=== PATIENT | male | born 1985 | race Caucasian/White ===

== ENCOUNTER 2019-10-13 14:28 | Observation (INO) | payer BC ==
--- NOTE | 2019-10-13 16:30 | PDOC.FPRHP ---
- History of Present Illness Chief Complaint: iretractable back pain History of Present Illness: Patrice Frederick is a direct admit from Dr. Nieves. He is a 34 yo M with a history of chronic back pain and herniated discs since a football injury in high school. Since November the pain has worsened. He describes the pain as 10/10 starting in his right buttocks and shooting down the lateral side of his legs into his feet. He also complains of a pelvic shift with an elevated right hip that causes him to hunch to his left. Patient is unable to straighten. He has used pain medication, muscle relaxers, steroids, physical therapy, and chiropractors in the past with little relief. Last week, starting on Wednesday, patient had a flare up of his pain. He says it "feels like an ice pack is being stabbed into his right calf, buttocks, and hip." The pain comes in waves and is a 10/10. Yesterday the patient received a steroid injection in his back which provided relief for approximately 1hr and then the pain returned with the same intensity. He has had Xrays and MRIs in the past. Patient has not had a bowel movement in 3 days. He started tylenol 3 on Wednesday. - Allergies/Adverse Reactions Allergies Allergy/AdvReac Type Severity Reaction Status Date / Time No Known Allergies Allergy Unverified 10/13/19 16:59 - Home Medications Medication Instructions Recorded Confirmed Type Acetaminophen With Codeine 300 mg PO DAILY 10/13/19 10/13/19 History [Acetaminophen-Cod #3 Tablet] Gabapentin 750 mg PO HS 10/13/19 10/13/19 History Meloxicam [Mobic] 7.5 mg PO BID 10/13/19 10/13/19 History Methocarbamol 750 mg PO TID 10/13/19 10/13/19 History - History PMHx: none PSHx: testicular torsion surgery, wisdom teeth 2005 FHx: maternal grandfather: prostate cancer Social: reacreational marijuana use, social alcohol use, denies tobacco and drug use - Review of Systems General: denies: fever/chills, weight/appetite/sleep changes Eyes: denies: vision changes ENT: denies: nasal congestion, rhinorrhea Respiratory: denies: cough, congestion, shortness of breath Cardiovascular: denies: chest pain, palpitation, edema Gastrointestinal: reports: constipation. denies: nausea, vomiting, diarrhea, abdominal pain Genitourinary: denies: incontinence, dysuria Musculoskeletal: reports: pain, tenderness, other (see HPI) Neurological: reports: numbness, weakness (see HPI) - Vital signs BP: 143/81 HR: 57 RR: 16 T:98.9 Pox: 100% on RA Wt: 85kg - Physical Exam Constitutional: awake, alert and oriented HEENT: normocephalic and atraumatic, PERRLA, EOMI, no scleral icterus, grossly normal hearing Neck: FROM Heart: RRR, normal S1/S2, no murmurs/rubs/gallops Lungs: CTAB, no respiratory distress, good air movement, no rales/rhonchi, no wheezing, no retractions Abdomen: soft, non-tender, bowel sounds present -Musculoskeletal: 4/5 strength right LE, 5/5 strength left LE. unable to stand erect secondary to right hip pain. Decreased ROM in right hip. Neurological: no focal deficit, DTRs 2+ -Neurological: decreased sensation to light touch on right lower extremity compared to left FMR H&P: A/P - Plan Patrice Frederick is a direct admit from Dr. Nieves. He is a 34 yo M with a history of chronic back pain and herniated discs admitted for intractable back pain. Intractable back pain 2/2 herniated lumbar disc -10/10 pain despite conservative therapeutic measures. -consult neurosurgery -MRI lumbar spine in AM -Pain management: scheduled gabapentin, ibuprofen, flexiril. PRN tylenol and morphine Constipation -will continue to monitor Diet: Regular IVF: none PPx: lovenox Code: FULL PCP: Dispo: Expected LOS <48hrs. Dispo pending neurosurgery recs. FMR H&P: Upper Level - Plan Date/Time: 10/13/19 1630 IDavid DO, have evaluated this patient and agree with findings/plan as outlined by international controller resident. Pertinent changes/additions are listed here. 34 yo wo sig pmhx presents for intractable back pain. He is a pt of Dr. Nieves and was sent over from his clinic today. He reports he was dx with a bulging lumbar disc with impingement in March, was medically managed successfully until this last week when he came to an abrupt stop and had pain shooting down his leg which has not resolved. He denies any change in sensation or weakness, none is noted on my physical exam. loss of rom 2/2 to pain in R leg and lumbar spine. no loss of reflex. monitor on oncology with dx of intractable back pain. will control pain, consult neurosurgery for further eval/treatment. ELOS<48hrs Addendum - Attending - Attending Attestation Date/Time: 10/13/19 [id number] I personally evaluated the patient and discussed the management with Dr. Tamayo/ Didier. I agree with the History, Examination, Assessment and Plan documented above with any addition or exceptions noted below. c/o low back pain that has failed conservative treatment and has been worsening for the past 6 months. MRI in March showed lumbar disc herniation. No having pain radiating down to right calf. Concern for worsening herniation. Obs for pain management and neurosurgical consultation. Repeat MRI tomorrow. further management per MRI and neurosurg.
[2019-10-13] MEDS ORDERED: Ondansetron ODT 4 MG TAB PO PRN (16:52)
[2019-10-13] MEDS ORDERED: Acetaminophen 500 MG TAB PO PRN ×2 (16:52→17:00)
[2019-10-13] MEDS ORDERED: Ondansetron PF 4 MG/2 ML Vial IVP PRN ×2 (16:52→17:01)
[2019-10-13] MEDS ORDERED: Morphine 4 MG/ML VIAL SLOW IVP PRN (17:00)
[2019-10-13] MEDS ORDERED: Milk Of Magnesia 30 ML UDCUP PO PRN (17:00)
[2019-10-13] MEDS ORDERED: diphenhydrAMINE 25 MG CAP PO PRN (17:00)
[2019-10-13] MEDS ORDERED: Mag-Al Plus 1200 MG/1200 MG/120 MG/30 ML UDCUP PO PRN (17:01)
[2019-10-13] MEDS: Ibuprofen 800 MG TAB PO SCH (17:17)
[2019-10-13] MEDS: Morphine 2 MG/ML VIAL SLOW IVP PRN (17:18)
[2019-10-13] MEDS: Morphine 4 MG/ML VIAL SLOW IVP PRN ×2 (18:34→22:38)
[2019-10-13] MEDS: Cyclobenzaprine 10 MG TAB PO SCH (20:34)
[2019-10-13] MEDS: Gabapentin 300 MG CAP PO SCH (20:34)
[2019-10-14] MEDS: Ibuprofen 800 MG TAB PO SCH ×3 (02:32→19:03)
--- NOTE | 2019-10-14 05:24 | PDOC.FM ---
- Subjective Subjective: Mr. Frederick endorses severe right sided hip and leg pain that is unchanged from the past few days. Patient explains he slept on and off all night, receiving morphine a couple times. He had the most relief from 800mg ibuprofen. He has not had a bowel movement. He denies abdominal pain. - Objective Vital Signs & Weight: Vital Signs (12 hours) Temp Pulse Resp BP Pulse Ox 10/14/19 04:00 97.7 F 51 L 14 137/66 97 10/14/19 00:00 98.4 F 48 L 12 132/74 99 10/13/19 20:52 98.3 F 50 L 12 140/77 99 Weight Weight 85.502 kg Phys Exam - Physical Examination Constitutional: NAD HEENT: PERRLA, moist MMs, sclera anicteric Neck: full ROM Respiratory: no wheezing, no rales, no rhonchi, clear to auscultation bilateral Cardiovascular: RRR, no significant murmur, no rub Gastrointestinal: soft, non-tender, no distention, positive bowel sounds Musculoskeletal: no edema, pulses present decreased ROM from right hip and leg, tenderness to palpation right buttock Neurological: moves all 4 limbs Psychiatric: normal affect, A&O x 3 Dx/Plan - Plan Plan: Patrice Frederick is a direct admit from Dr. Nieves. He is a 34 yo M with a history of chronic back pain and herniated discs admitted for intractable back pain. Intractable back pain 2/2 herniated lumbar disc -10/10 pain despite conservative therapeutic measures. -Neurosurgery to see this morning. -MRI lumbar spine this morning. -Pain management: scheduled gabapentin, ibuprofen, flexiril. PRN tylenol and morphine Constipation -given bowel regimen -will continue to monitor Diet: Regular IVF: none PPx: lovenox Code: FULL PCP: Dispo: Expected LOS <48hrs. Dispo pending neurosurgery recs.
[2019-10-14] MEDS: Morphine 4 MG/ML VIAL SLOW IVP PRN ×2 (06:15→13:12)
[2019-10-14] MEDS ORDERED: Senokot S 8.6-50 MG TAB PO PRN (07:42)
[2019-10-14] MEDS ORDERED: Senokot S 8.6-50 MG TAB PO SCH (07:43)
[2019-10-14] MEDS: Cyclobenzaprine 10 MG TAB PO SCH ×3 (08:10→20:07)
[2019-10-14] MEDS: Gabapentin 300 MG CAP PO SCH ×3 (08:10→20:07)
[2019-10-14] MEDS: Enoxaparin Sodium 40 MG/0.4 ML SYRINGE SC SCH (08:17)
[2019-10-14] MEDS ORDERED: ALPRAZolam 0.25 MG TAB PO PRN (10:01)
[2019-10-14] MEDS: Morphine 2 MG/ML VIAL SLOW IVP PRN (10:07)
--- NOTE | 2019-10-14 11:25 | MRI ---
EXAM: MRI lumbar spine without contrast HISTORY: Low back pain radiating down the right leg for 3 weeks COMPARISON: None TECHNIQUE: Multiple planar multisequence MR images were obtained of the lumbar spine without contrast . FINDINGS: The vertebral bodies demonstrate normal height and alignment without fracture or subluxation. There i s intervertebral disc space narrowing and desiccation at L4/5 and L5/S1. The prevertebral and paraspinal soft tissues are unremarkable. No marrow signal abnormality is present. The conus medullaris terminates normally at T12/L1. T12/L1: No significant posterior bulge or protrusion. No posterior facet arthrosis. No central reanna l stenosis. No neural foraminal stenosis L1/2: No significant posterior bulge or protrusion. No posterior facet arthrosis. No central canal stenosis. No neural foraminal stenosis L2/3: No significant posterior bulge or protrusion. No posterior facet arthrosis. No central canal stenosis. No neural foraminal stenosis L3/4: No significant posterior bulge or protrusion. No posterior facet arthrosis. No central canal stenosis. No neural foraminal stenosis L4/5: Moderate generalized concentric disc bulge. mild bilateral posterior facet arthrosis. Moderat e central canal stenosis. Mild bilateral neural foraminal stenosis L5/S1: Small generalized concentric disc bulge with superimposed central protrusion extending superio rly. No posterior facet arthrosis. No central canal stenosis. Mild to moderate neural foraminal stenosis IMPRESSION: Degenerative changes of the lower lumbosacral spine as above.
[2019-10-14 11:54] LABS: #Eosinphils 0.1 thou/uL (0.0-0.7); #Lymphocytes 2.4 thou/uL (1.20-3.40); #Monocytes 0.5 thou/uL (0.11-0.59); #Neutrophils 3.5 thou/uL (1.40-6.50); %Basophils 0.8 % (0.0-1.0); %Eosinophils 1.2 % (0.0-10.0); %Monocytes 7.7 % (0.0-10.0); %Neutrophils 54.3 % (42.0-75.0); Mean Corpuscular HGB CONC 34.8 g/dL (32.0-36.0); Mean Corpuscular Hemoglobin 30.7 pg (27.0-31.0); Mean Corpuscular Volume 88.3 fL (78.0-98.0); Mean Platelet Volume 9.6 fL (7.4-10.4); Platelet Count 164 thou/uL (130-400); RBC Distribution Width 11.6 % (11.5-14.5); Red Blood Cell (RBC) Count 5.22 mill/uL (4.70-6.10); White Blood Cell (WBC) Count 6.5 thou/uL (4.8-10.8)
[2019-10-14 12:17] LABS: Anion Gap 11 mmol/L (10-20); BUN (Urea Nitrogen) 13 mg/dL (8.9-20.6); Calc. Creatinine Clearance 153 mL/min (70-130); Calcium 8.8 mg/dL (7.8-10.44); Carbon Dioxide 25 mmol/L (22-29); Chloride 107 mmol/L (98-107); Estimated GFR-MDRD Greater than 90; Glucose 89 mg/dL (70-105); Potassium 3.7 mmol/L (3.5-5.1); Sodium 139 mmol/L (136-145)
[2019-10-14] MEDS ORDERED: HYDROcodone/Acetaminophen 5/325 mg Tablet PO PRN (15:06)
[2019-10-14] MEDS: HYDROcodone/Acetaminophen 5/325 mg Tablet PO PRN ×2 (17:08→22:59)
--- NOTE | 2019-10-14 17:56 | PRG ---
DATE OF SERVICE: 10/14/[address] Yunior Tamayo for which I agree. The patient was seen, evaluated, and discussed and examined with the residents. No real changes, still pretty, severe pain, worsening of an MRI this morning to figure out the next step as far as this is intractable back pain. Pain is fairly well controlled that he has done much or tried much at he has been here, so management will be based on what the MRI shows. Job ID: [id number]
[2019-10-14 19:02] VITALS: BMI 23.5
[2019-10-15] MEDS: Ibuprofen 800 MG TAB PO SCH ×2 (02:08→10:45)
[2019-10-15] MEDS: HYDROcodone/Acetaminophen 5/325 mg Tablet PO PRN ×2 (05:07→11:26)
--- NOTE | 2019-10-15 05:25 | PDOC.FM ---
- Subjective Subjective: Mr. Frederick is resting comfortably lying on his left side this morning. He explains he woke up at 4am in quite a bit of pain but received his scheduled medications at 0500 and has been comfortable since. He had a bowel movement last night. - Objective Vital Signs & Weight: Vital Signs (12 hours) Temp Pulse Resp BP Pulse Ox 10/14/19 20:17 98.5 F 74 16 135/79 98 Weight Weight 85.275 kg I&O: 10/13/19 10/14/19 10/15/19 06:59 06:59 06:59 Intake Total 500 1200 Balance 500 1200 Result Diagrams: 10/14/19 11:48 10/14/19 11:48 Radiology Reviewed by me: Yes (MRI: moderate disc bulge L4/L5) Phys Exam - Physical Examination Constitutional: NAD HEENT: PERRLA, moist MMs, sclera anicteric Neck: full ROM Respiratory: no wheezing, no rales, no rhonchi, clear to auscultation bilateral Cardiovascular: RRR, no significant murmur Gastrointestinal: soft, non-tender, no distention, positive bowel sounds Musculoskeletal: no edema, pulses present decreased ROM due to pain in right hip and right LE Neurological: moves all 4 limbs Psychiatric: normal affect, A&O x 3 Dx/Plan - Plan Plan: Patrice Frederick is a direct admit from Dr. Nieves. He is a 34 yo M with a history of chronic back pain and herniated discs admitted for intractable back pain. Intractable back pain 2/2 herniated lumbar disc -10/10 pain despite conservative therapeutic measures. -MRI lumbar spine revealed a moderate disc bulge at L4/L5. Neurosurgery recommended analgesic and steroid treatment, stating it was non-surgical at this time. Suggested outpatient follow-up with them next week. -Pain management: scheduled gabapentin, ibuprofen, flexiril. PRN tylenol and norco. -Will follow up with Dr. Nieves next week for an epidural steroid injection. Diet: Regular IVF: none PPx: lovenox Code: FULL PCP: Dispo: Expected LOS <48hrs. Discharge home today on PO medications.
[2019-10-15 07:46] VITALS: TEMP 98.1
[2019-10-15] MEDS ORDERED: predniSONE 20 MG TAB PO SCH (08:00)
[2019-10-15] MEDS ORDERED: predniSONE 50 MG TAB PO SCH (08:00)
[2019-10-15] MEDS: Enoxaparin Sodium 40 MG/0.4 ML SYRINGE SC SCH (08:19)
[2019-10-15] MEDS: Gabapentin 300 MG CAP PO SCH (08:19)
[2019-10-15] MEDS: Cyclobenzaprine 10 MG TAB PO SCH (08:20)
[2019-10-15 11:34] VITALS: BP 141/81
--- NOTE | 2019-10-15 16:11 | PRG ---
DATE OF SERVICE: 10/15/2019 The patient was seen, discussed, evaluated, and examined with the residents by bedside. Please see Dr. Tamayo's note for which I agree. The patient has improved pain hayes. MRI just showed a few disk levels, nothing that seem to crucial or critical or surgically emergent, so as to be discharged home on steroids, pain medications, muscle relaxers, and hopefully, we will set up for an outpatient epidural cortisone shot to get more relief. Job ID: [id number]
--- NOTE | 2019-10-17 01:17 | DIS ---
DATE OF ADMISSION: 10/13/2019 DATE OF DISCHARGE: 10/15/2019 RESIDENT: Yunior Tamayo MD ADMITTING ATTENDING: Dmitry Marlow MD DISCHARGE ATTENDING: Dmitry Marlow MD CONSULTS: Neurosurgery, Ashkan Kelly PA-C PROCEDURES: None. PRIMARY DIAGNOSIS: Intractable back pain secondary to herniated lumbar disk. SECONDARY DIAGNOSES: Constipation. DISCHARGE MEDICATIONS: 1. Gabapentin 600 mg p.o. t.i.d. 2. Cyclobenzaprine 10 mg p.o. t.i.d. 3. Ibuprofen 800 mg p.o. t.i.d. 4. Prednisone 20 mg p.o. in the morning. DISCONTINUED MEDICATIONS: 1. Gabapentin 750 p.o. at bedtime. 2. Meloxicam 7.5 mg p.o. b.i.d. 3. Methocarbamol 750 mg p.o. t.i.d. 4. Tylenol No. 3 at 300 mg p.o. daily. HISTORY OF PRESENT ILLNESS AND HOSPITAL COURSE: Patrice Frederick was a direct admit from Dr. Nieves. He is a 34-year-old male with a history of chronic back pain and herniating disk, who presented with intractable back pain. He says his pain has worsened since November. He describes the pain as 10/10 starting in his right buttocks and shooting down the lateral side of his leg and into his feet. He also complains of a pelvic shift with an elevated right hip that causes him to hunch to the left. The pain was stable until last week when he was chasing his dog and twisted his leg. He has used pain medications, muscle relaxers, steroids, physical therapy, and chiropractors in the past, with little to no relief. Two days before admission, the patient was given a steroid injection to his back which only provided relief for an hour and the pain returned with the same intensity. He has had x-rays and MRIs in the past. The patient also reports that he has not had a bowel movement in 3 days. During admission, Neurosurgery was consulted and the patient received an MRI. MRI showed moderate concentric disk bulge in L4 and L5 as well as small concentric disk bulge with superimposed central protrusion extending superiorly at L5-S1. Neurosurgery reviewed the MRI report and recommended analgesics and a steroid taper saying there is no surgical intervention at this time. The patient was discharged, controlled on p.o. pain medications and told to follow up with Dr. Nieves for possible epidural injection next week and Neurosurgery in their clinic as outpatient. DISPOSITION: Stable. DISCHARGE INSTRUCTIONS: 1. Location: Home. 2. Diet: Regular. 3. Activity: As tolerated. 4. Followup: Follow up Dr. Nieves next week for an epidural injection in his back , Neurosurgery next Wednesday for outpatient followup. Job ID: [id number] MTDD
== END 2019-10-15 14:00 | disposition home or self-care (01) ==
LOC: INTOOBSV 14:28 → ONC 14:28
PROVIDERS: ADMIT Family Medicine; ATTEND Family Medicine
DX: M51.26 Other intervertebral disc displacement, lumbar region (principal); M48.061 Spinal stenosis, lumbar region without neurogenic claudication; K59.00 Constipation, unspecified; F17.200 Nicotine dependence, unspecified, uncomplicated
CPT/HCPCS: 36415; 72148; 80048; 85025; 96372; 96374; 96376; G0378; J1650; J2270; J7512; Q0163